=== PATIENT | male | born 1970 | race Caucasian/White ===

== ENCOUNTER 2018-03-19 17:31 | Emergency (ER) | payer SELFPAY ==
[2018-03-19] MEDS ORDERED: KETOROLAC 30 MG/ML INJ ONE (19:41)
--- NOTE | 2018-03-19 20:25 | RAD REPORT ---
EXAM DESCRIPTION: RAD - Tib Fib Left - 03/19/2018 8:13 pm CLINICAL HISTORY: PAIN Trauma, pain COMPARISON: No comparisons FINDINGS: No acute fracture is seen. Anterior tibial periosteum appears thickened with mild swelling of the pretibial soft tissues. While nonspecific, this can indicate condition such as ayala splints, stress fracture or less likely malignancy. Followup nonemergent left tibia/fibula MR imaging is advis ed.
--- NOTE | 2018-03-19 20:34 | ER ---
Nurse's Notes [facility] Name: Jonatan Jacome Age: 47 yrs Sex: Male : 1970 Arrival Date: 03/19/2018 Time: 17:36 Bed 28 Private MD: None, None Diagnosis: Pain in left leg;Abrasion of lower leg Presentation: 03/19 18:34 Presenting complaint: Patient states: night he woke up in the middle of the aj1 night shaking, he had trouble walking to the bathroom. His says that he was having a hard time talking. Then on Tuesday he was helping someone cut down a tree and when it fell it hit the back of his left leg. It has been swollen and painful to walk on since then. Patient states that he also has a dental abscess that he is suppose to be getting treated. Transition of care: patient was not received from another setting of care. Onset of symptoms was March 16, 2018. Risk Assessment: Do you want to hurt yourself or someone else? Patient reports no desire to harm self or others. Initial Sepsis Screen: Does the patient meet any 2 criteria? HR > 90 bpm. No. Patient's initial sepsis screen is negative. Does the patient have a suspected source of infection? Yes: Other: swelling to left calf, dental abscess. Care prior to arrival: None. 18:34 Method Of Arrival: Wheelchair aj1 18:34 Acuity: MATILDE 3 aj1 Triage Assessment: 18:38 General: Appears in no apparent distress. uncomfortable, Behavior is calm, cooperative, aj1 appropriate for age. Pain: Complains of pain in left calf Pain currently is 8 out of 10 on a pain scale. Neuro: Level of Consciousness is awake, alert, obeys commands. Cardiovascular: Patient's skin is warm and dry. Respiratory: Airway is patent Respiratory effort is even, unlabored, Respiratory pattern is regular, symmetrical. Musculoskeletal: Range of motion: intact in all extremities. Injury Description: Patient's left lower leg was hit by a falling tree. Historical: - Allergies: 18:38 Morphine; aj1 - Home Meds: 18:38 Peshastin Oral [Active]; Nortriptyline Oral [Active]; aj1 - PMHx: 18:38 chronic neck pain; spinal stenosis; insomnia; aj1 - Immunization history:: Flu vaccine is not up to date. - Social history:: Smoking status: Patient uses tobacco products, smokes one pack cigarettes per day. - Ebola Screening: : Patient denies travel to an Ebola-affected area in the 21 days before illness onset. Screenin:26 Abuse screen: Denies threats or abuse. Nutritional screening: No deficits noted. tl3 Tuberculosis screening: No symptoms or risk factors identified. Fall Risk None identified. Assessment: 19:26 General: Appears uncomfortable, slender, well groomed, well developed, well nourished, tl3 Behavior is calm, cooperative, appropriate for age. Pain: Complains of pain in left jaw and left leg and left calf. Neuro: Level of Consciousness is awake, alert, obeys commands, Oriented to person, place, time, situation, Appropriate for age. Cardiovascular: Capillary refill < 3 seconds in right toes Patient's skin is warm and dry. Respiratory: Airway is patent Respiratory effort is even, unlabored, Respiratory pattern is regular, symmetrical. GI: No deficits noted. No signs and/or symptoms were reported involving the gastrointestinal system. : No deficits noted. No signs and/or symptoms were reported regarding the genitourinary system. EENT: Reports pain in mouth. Derm: No signs and/or symptoms reported regarding the dermatologic system. Musculoskeletal: Swelling present in left calf. 20:49 Reassessment: Patient appears in no apparent distress at this time. No changes from tl3 previously documented assessment. Patient and/or family updated on plan of care and expected duration. Pain level reassessed. Patient is alert, oriented x 3, equal unlabored respirations, skin warm/dry/pink. 21:43 Reassessment: Patient appears in no apparent distress at this time. No changes from tl3 previously documented assessment. Patient and/or family updated on plan of care and expected duration. Pain level reassessed. Patient is alert, oriented x 3, equal unlabored respirations, skin warm/dry/pink. Vital Signs: 18:38 BP 123 / 96; Pulse 106; Resp 18; Temp 97.6; Pulse Ox 99% on R/A; Weight 83.91 kg (R); aj1 Height 6 ft. 2 in. (187.96 cm) (R); Pain 8/10; 19:40 BP 121 / 88; Pulse 98; Resp 18; Pulse Ox 98% on R/A; tl3 20:49 BP 121 / 82; Pulse 97; Resp 18; Pulse Ox 100% on R/A; tl3 21:43 BP 124 / 84; Pulse 93; Resp 18; Pulse Ox 99% on R/A; tl3 18:38 Body Mass Index 23.75 (83.91 kg, 187.96 cm) aj1 ED Course: 17:36 Patient arrived in ED. mr 17:36 None, None is Private Physician. mr 17:39 [facility] Mitchell F[facility]-C [facility]. snw 17:39 Nikos Boland MD is Attending Physician. snw 18:37 Triage completed. aj1 18:38 Arm band placed on Patient placed in an exam room. aj1 19:18 Brittny Ni, ADRIAN is Primary Nurse. tl3 19:26 Patient has correct armband on for positive identification. Pulse ox on. NIBP on. tl3 19:26 No provider procedures requiring assistance completed. Patient did not have IV access tl3 during this emergency room visit. 20:14 Tib Fib Left XRAY In Process Unspecified. 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 Exp: tl3 01/13/2020. Lot #: [id number]. } Route: IM; Site: left deltoid; 21:44 Follow up: Response: No adverse reaction tl3 20:48 Drug: Peshastin 5 mg-325 mg 1 tabs Route: PO; tl3 21:44 Follow up: Response: No adverse reaction tl3 20:49 Drug: Clindamycin 300 mg Route: PO; tl3 21:45 Follow up: Response: No adverse reaction tl3 Outcome: 20:33 Discharge ordered by . snw 21:43 Discharged to home tl3 21:43 Condition: stable 21:43 Discharge instructions given to patient, Instructed on discharge instructions, follow up and referral plans. medication usage, Demonstrated understanding of instructions, follow-up care, medications, Prescriptions given X 2. 21:46 Patient left the ED. tl3 Signatures: Dispatcher [employer]st Cristela Gonzalez, RN RN aj1 Angela Mitchell, ASSET MANAGEMENT ANALYST-C ASSET MANAGEMENT ANALYST-Csnw Dayan Hansen mr Brittny Ni, RN RN tl3
--- NOTE | 2018-03-19 20:34 | EDPHYS ---
Physician Documentation [facility] Name: Jonatan Jacome Age: 47 yrs Sex: Male : 1970 Arrival Date: 03/19/2018 Time: 17:36 Bed 28 Private MD: None, None ED Physician Nikos Boland HPI: 03/19 19:29 This 47 yrs old Male presents to ER via Wheelchair with complaints of Leg snw Injury. 19:29 The patient presents with a crush injury, from a heavy object. The complaints affect snw the left calf. Context: resulted from a crush injury, from a solid object, piece of tree limb, the patient can fully bear weight, the patient is able to ambulate. Onset: The symptoms/episode began/occurred 3 day(s) ago, and became persistent. Associated signs and symptoms: Pertinent positives: calf tenderness, swelling. Severity of symptoms: At their worst the symptoms were moderate. It is unknown whether or not the patient has had similar symptoms in the past. The patient has not recently seen a physician. Historical: - Allergies: 18:38 Morphine; aj1 - Home Meds: 18:38 Red Jacket Oral [Active]; Nortriptyline Oral [Active]; aj1 - PMHx: 18:38 chronic neck pain; spinal stenosis; insomnia; aj1 - Immunization history:: Flu vaccine is not up to date. - Social history:: Smoking status: Patient uses tobacco products, smokes one pack cigarettes per day. - Ebola Screening: : Patient denies travel to an Ebola-affected area in the 21 days before illness onset. ROS: 19:27 Constitutional: Negative for fever, chills, and weight loss, + weakness. Pt states he snw probably had a stroke on . Did not wish to be evaluated. Went to work Tuesday. States he doesn't feel back to normal Eyes: Negative for injury, pain, redness, and discharge, ENT: Negative for injury, pain, and discharge, Neck: Negative for injury, pain, and swelling, Cardiovascular: Negative for chest pain, palpitations, and edema, Respiratory: Negative for shortness of breath, cough, wheezing, and pleuritic chest pain, Abdomen/GI: Negative for abdominal pain, nausea, vomiting, diarrhea, and constipation, Back: Negative for injury and pain, Skin: Negative for injury, rash, and discoloration, Neuro: Negative for headache, weakness, numbness, tingling, and seizure. 19:27 MS/extremity: Positive for injury or acute deformity, contusion, swelling, tenderness, of the left calf. Exam: 19:24 Constitutional: This is a well developed, well nourished patient who is awake, alert, snw and in no acute distress. Head/Face: Normocephalic, atraumatic. Eyes: Pupils equal round and reactive to light, extra-ocular motions intact. Lids and lashes normal. Conjunctiva and sclera are non-icteric and not injected. Cornea within normal limits. Periorbital areas with no swelling, redness, or edema. ENT: Nares patent. No nasal discharge, no septal abnormalities noted. Tympanic membranes are normal and external auditory canals are clear. Oropharynx with no redness, swelling, or masses, exudates, or evidence of obstruction, uvula midline. Mucous membranes moist. Neck: Trachea midline, no thyromegaly or masses palpated, and no cervical lymphadenopathy. Supple, full range of motion without nuchal rigidity, or vertebral point tenderness. No Meningismus. Chest/axilla: Normal chest wall appearance and motion. Nontender with no deformity. No lesions are appreciated. Cardiovascular: Regular rate and rhythm with a normal S1 and S2. No gallops, murmurs, or rubs. Normal PMI, no JVD. No pulse deficits. Respiratory: Lungs have equal breath sounds bilaterally, clear to auscultation and percussion. No rales, rhonchi or wheezes noted. No increased work of breathing, no retractions or nasal flaring. Abdomen/GI: Soft, non-tender, with normal bowel sounds. No distension or tympany. No guarding or rebound. No evidence of tenderness throughout. Back: No spinal tenderness. No costovertebral tenderness. Full range of motion. Skin: Warm, dry with normal turgor. Normal color with no rashes, no lesions, and no evidence of cellulitis. Neuro: Awake and alert, GCS 15, oriented to person, place, time, and situation. Cranial nerves II-XII grossly intact. Motor strength 5/5 in all extremities. Sensory grossly intact. Cerebellar exam normal. Normal gait. Psych: Awake, alert, with orientation to person, place and time. Behavior, mood, and affect are within normal limits. 19:24 Musculoskeletal/extremity: Extremities: grossly normal except: contusion, swelling, tenderness, ROM: no acute changes, Circulation is intact in all extremities. Sensation intact. left calf edema, tenderness with abrasion to posterior calf. Vital Signs: 18:38 BP 123 / 96; Pulse 106; Resp 18; Temp 97.6; Pulse Ox 99% on R/A; Weight 83.91 kg (R); aj1 Height 6 ft. 2 in. (187.96 cm) (R); Pain 8/10; 19:40 BP 121 / 88; Pulse 98; Resp 18; Pulse Ox 98% on R/A; tl3 20:49 BP 121 / 82; Pulse 97; Resp 18; Pulse Ox 100% on R/A; tl3 21:43 BP 124 / 84; Pulse 93; Resp 18; Pulse Ox 99% on R/A; tl3 18:38 Body Mass Index 23.75 (83.91 kg, 187.96 cm) aj1 MDM: 18:55 Patient medically screened. [facility] 20:34 Data reviewed: vital signs, nurses notes. Data interpreted: Pulse oximetry: on room air snw is 98 %. Counseling: I had a detailed discussion with the patient and/or guardian regarding: the historical points, exam findings, and any diagnostic results supporting the discharge/admit diagnosis, the presence of at least one elevated blood pressure reading (>120/80) during this emergency department visit, radiology results, the need for outpatient follow up, to return to the emergency department if symptoms worsen or persist or if there are any questions or concerns that arise at home. Special discussion: Based on the history and exam findings, there is no indication for further emergent testing or inpatient evaluation. I discussed with the patient/guardian the need to see the primary care provider for further evaluation of the symptoms. 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 Exp: tl3 01/13/2020. Lot #: [id number]. } Route: IM; Site: left deltoid; 21:44 Follow up: Response: No adverse reaction tl3 20:48 Drug: Red Jacket 5 mg-325 mg 1 tabs Route: PO; tl3 21:44 Follow up: Response: No adverse reaction tl3 20:49 Drug: Clindamycin 300 mg Route: PO; tl3 21:45 Follow up: Response: No adverse reaction tl3 Disposition: 03/20 08:29 Co-signature as Attending Physician, Nikos Boland MD I agree with the assessment and anahi plan of care. Disposition: 03/19/18 20:33 Discharged to Home. Impression: Pain in left leg, Abrasion of lower leg. - Condition is Stable. - Discharge Instructions: Musculoskeletal Pain, VIS, Tetanus, Diphtheria (Td) - CDC, Cryotherapy, Heat Therapy. - Prescriptions for Clindamycin HCl 300 mg Oral Capsule - take 1 capsule by ORAL route every 6 hours for 10 days; 40 capsule. Diclofenac Sodium 75 mg Oral Tablet Sustained Release - take 1 tablet by ORAL route 2 times per day; 30 tablet. - Work release form, Medication Reconciliation Form, Thank You Letter, Antibiotic Education, Prescription Opioid Use form. - Follow up: Private Physician; When: 2 - 3 days; Reason: Recheck today's complaints, Continuance of care, Re-evaluation by your physician. Follow up: Emergency Department; When: As needed; Reason: Worsening of condition. Signatures: Dispatcher [employer] EDCristela Meeks, ADRIAN RN ajNikos Daugherty MD MD cha Therrien, Shelly, PUTTY MIXER-C PUTTY MIXER-Csnw Brittny Ni, RN RN tl3 Corrections: (The following items were deleted from the chart) 03/19 21:46 20:33 03/19/2018 20:33 Discharged to Home. Impression: Pain in left leg; Abrasion of tl3 lower leg. Condition is Stable. Forms are Medication Reconciliation Form, Thank You Letter, Antibiotic Education, Prescription Opioid Use. Follow up: Private Physician; When: 2 - 3 days; Reason: Recheck today's complaints, Continuance of care, Re-evaluation by your physician. Follow up: Emergency Department; When: As needed; Reason: Worsening of condition. snw
[2018-03-19] MEDS ORDERED: CLINDAMYCIN HCL 150 MG CAP ONE (20:48)
[2018-03-19] MEDS ORDERED: TETANUS & DIPHTHERIA TOX,ADULT 0.5 ML VIAL ONE (20:49)
[2018-03-19] MEDS ORDERED: HYDROCODONE/APAP 5/325 MG TAB ONE (20:52)
== END 2018-03-19 21:46 | disposition home or self-care (01) ==
LOC: ER 17:31
DX: S80.812A Abrasion, left lower leg, initial encounter (principal); W20.8XXA Other cause of strike by thrown, projected or falling object, initial encounter; Z23 Encounter for immunization; M54.2 Cervicalgia; G89.29 Other chronic pain; M48.00 Spinal stenosis, site unspecified; G47.00 Insomnia, unspecified; F17.210 Nicotine dependence, cigarettes, uncomplicated; Z79.891 Long term (current) use of opiate analgesic; Z79.899 Other long term (current) drug therapy
CPT/HCPCS: 90714; 96372; 99284